=== PATIENT | female | born 1985 | race Caucasian/White ===

== ENCOUNTER 2021-03-18 17:50 | Emergency (ER) | payer OTHER, SELFPAY ==
[2021-03-18 18:29] VITALS: BP 141/87; PULSE 82; RESP 16; TEMP 36.2; O2SAT 98; BMI 25.7
[2021-03-18] MEDS: Diphth,Pertus(ACell),Tet Adult 0.5 ML SYRINGE IM (19:16)
[2021-03-18] MEDS: Lidocaine HCl 1 % MPF 5 ML VIAL 10 ML SUBCUT (19:18)
--- NOTE | 2021-03-18 20:32 | ED_ITS ---
HPI - Wound/Laceration General Chief Complaint: Wound/Laceration <Mir Mcdonald NP - Last Filed: 05/04/21 17:49> Stated Complaint: FINGER LAC <Mir Mcdonald NP - Last Filed: 05/04/21 17:49> Time Seen by Provider: 03/18/21 19:03 <Mir Mcdonald NP - Last Filed: 05/04/21 17:49> Source: patient <Mri Mcdonald NP - Last Filed: 05/04/21 17:49> Mode of arrival: ambulatory <Mir Mcdonald NP - Last Filed: 05/04/21 17:49> Limitations: no limitations <Mir Mcdonald NP - Last Filed: 05/04/21 17:49> History of Present Illness HPI narrative: Superficial laceration to the left ring finger at home from a new cooking knife. Knife was clean. States up-to-date on vaccination. <Mir Mcdonald NP - Last Filed: 05/04/21 17:49> Onset (ago): minute(s) <Mir Mcdonald NP - Last Filed: 05/04/21 17:49> Extremity Location: left: hand <Mir Mcdonald NP - Last Filed: 05/04/21 17:49> Place: home <Mir Mcdonald NP - Last Filed: 05/04/21 17:49> Patient tetanus UTD: Yes <Mir Mcdonald NP - Last Filed: 05/04/21 17:49> Context: accidental <Mir Mcdonald NP - Last Filed: 05/04/21 17:49> Associated symptoms: none <Mir Mcdonald NP - Last Filed: 05/04/21 17:49> Treatments prior to arrival: bandage <Mir Mcdonald NP - Last Filed: 05/04/21 17:49> Related Data Allergies/Adverse Reactions: Allergies Allergy/AdvReac Type Severity Reaction Status Date / Time No Known Allergies Allergy Verified 03/18/21 18:32 <Mir Mcdonald NP - Last Filed: 05/04/21 17:49> Review of Systems Review of Systems: Constitutional: No Weight loss, No Fever, No Chills, No Night Sweats, No Fatigue, No Malaise ENT/Mouth: No Hearing loss, No Ear Pain, No Nasal Congestion, No Sinus Pain, No Hoarseness, No sore throat, No Rhinorrhea, No Swallowing Difficulty Eyes: No Eye Pain, No Swelling, No Redness, No Foreign Body, No Discharge, No Vision Changes Cardiovascular: No Chest Pain, No SOB, No Dyspnea on Exertion, No Orthopnea, No Edema, No Palpitations Respiratory: No Cough, No Sputum, No Wheezing, No Smoke Exposure, No Dyspnea Musculoskeletal: No joint pain, No Myalgias, No Joint Swelling Skin: No Skin Lesions, No rash, lacerations noted per HPI Neuro: No Weakness, No Numbness, No Paresthesias, No Loss of Consciousness, No Dizziness, No Headache Psych: No Social Issues Heme/Lymph: No Bruising, No Bleeding,No Lymphadenopathy Endocrine: No Polyuria, No Polydipsia, No Temperature Intolerance <Mir Mcdonald NP - Last Filed: 05/04/21 17:49> Yes all other systems are reviewed and are negative <Mir Mcdonald NP - Last Filed: 05/04/21 17:49> [facility] Social History Social History: Social History Alcohol intake: never Smoked in Last 30 Days: No Use of substances other than those prescribed or required for medical reasons: No Any prior treatment program specific to substance use: No Advance Directives: No Advance Directives Information Provided: Yes Patient : No <Mir Mcdonald NP - Last Filed: 05/04/21 17:49> Physical Exam Vital Signs: Vital Signs: Last Vital Signs Temp 97.2 F 03/18/21 18:29 Pulse 82 03/18/21 18:29 Resp 03/18/21 18:29 BP 141/87 H 03/18/21 18:29 Pulse Ox 98 03/18/21 18:29 Body Mass Index 25.7 Reviewed <Mir Mcdonald NP - Last Filed: 05/04/21 17:49> Vital Signs: Last Vital Signs Temp 97.2 F 03/18/21 18:29 Pulse 82 03/18/21 18:29 Resp 16 03/18/21 18:29 BP 141/87 H 03/18/21 18:29 Pulse Ox 98 03/18/21 18:29 Body Mass Index 25.7 <Ashutosh Llanes MD - Last Filed: 06/06/21 09:39> Const: General: cooperative and healthy appearing; No acute distress or intoxicated appearing <Mir Mcdonald NP - Last Filed: 05/04/21 17:49> Nutritional Appearance: average body habitus <Mir Mcdonald NP - Last Filed: 05/04/21 17:49> Orientation/consciousness: patient oriented x3 <Mir Mcdonald NP - Last Filed: 05/04/21 17:49> Chest: Chest palpation & inspection: normal inspection of the chest <Mir Mcdonald NP - Last Filed: 05/04/21 17:49> Resp: Effort & Inspection: normal respiratory effort <Mir Mcdonald NP - Last Filed: 05/04/21 17:49> Skin: General skin exam: no rashes or lesions noted <Mir Mcdonald NP - Last Filed: 05/04/21 17:49> Neuro: General: patient oriented x3 <Mir Mcdonald NP - Last Filed: 05/04/21 17:49> Extrem: General: Yes normal to inspection <Mir Mcdonald NP - Last Filed: 05/04/21 17:49> Course Course Course Narrative: Superficial laceration repaired with suture. Home care, return, follow-up instructions provided. <Mir Mcdonald NP - Last Filed: 05/04/21 17:49> I have reviewed the chart <Ashutosh Llanes MD - Last Filed: 06/06/21 09:39> Procedures Laceration Laceration 1: Site: hand <Mir Mcdonald NP - Last Filed: 05/04/21 17:49> Side (If applicable): left <Mir Mcdonald NP - Last Filed: 05/04/21 17:49> Size (cm): 0.5 <Mir Mcdonald NP - Last Filed: 05/04/21 17:49> Description: linear <Mir Mcdonald NP - Last Filed: 05/04/21 17:49> Depth: simple, single layer <Mir Mcdonald NP - Last Filed: 05/04/21 17:49> Local Anesthetic: lidocaine 1% <Mir Mcdonald NP - Last Filed: 05/04/21 17:49> Amount of anesthesia used (mL): 2 <Mir Mcdonald NP - Last Filed: 05/04/21 17:49> Size (cm): 5-0 <Mir Mcdonald NP - Last Filed: 05/04/21 17:49> Number of sutures: 2 <Mir Mcdonald NP - Last Filed: 05/04/21 17:49> Technique: simple, interrupted <Mir Mcdonald NP - Last Filed: 05/04/21 17:49> Discharge Plan Discharge Clinical Impression: Laceration <Mir Mcdonald NP - Last Filed: 05/04/21 17:49> Patient Disposition: Home, Self-Care <Mir Mcdonald NP - Last Filed: 05/04/21 17:49> Instructions: Finger Laceration (ED) <Mir Mcdonald NP - Last Filed: 05/04/21 17:49> Additional Instructions: Today you suffered a superficial laceration to the left distal ring finger. This required for superficial stitches. There is no injury to the bone or ligaments. The stitches are nonabsorbable and need to be removed and 7-10 days Keep site clean and dry finger splint for comfort Return here for suture removal Return here sooner if you have any concerns or symptoms of infection including redness, swelling, discharge, pain, fever. You may take [id number] Tylenol or ibuprofen as needed for pain discomfort Thank you <Mir Mcdonald NP - Last Filed: 05/04/21 17:49> Referrals: Radha Castaneda MD [Primary Care Provider] - 1 week (Suture removal) <Mir Mcdonald NP - Last Filed: 05/04/21 17:49> Interventions: ED Discharge Assessment Last Done: 03/18/21 20:39 <Mir Mcdonald NP - Last Filed: 05/04/21 17:49> Discharge Date/Time: 03/18/21 20:40 <Mir Mcdonald NP - Last Filed: 05/04/21 17:49>
== END 2021-03-18 20:40 | disposition home or self-care (01) ==
PROVIDERS: Emergency Provider Internal Medicine; PCP Internal Medicine
DX: S61.215A Laceration without foreign body of left ring finger without damage to nail, initial encounter (principal); W26.0XXA Contact with knife, initial encounter; Y93.G1 Activity, food preparation and clean up; Y92.010 Kitchen of single-family (private) house as the place of occurrence of the external cause; Y99.9 Unspecified external cause status
CPT/HCPCS: 12001; 29130; 90471; 90715; 99284

== ENCOUNTER 2023-08-02 10:32 | Outpatient (AMB) | payer OTHER, SELFPAY ==
--- NOTE | 2023-08-02 11:21 | AM.OFFWIN_ITS ---
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 Patient Tobacco Use Status: Never used Tobacco Allergies No Known Allergies Allergy (Verified 08/02/23 11:53) Medication List - Last Reconciled 08/02/23 by Rashi Romo MD citalopram 20 mg PO DAILY Do you need a note to return to daycare/school/sports/work: No HPI GENERAL CLEANER/right knee injury HPI Details 38-year-old female presents to the [facility] for a sick visit. Patient tripped on the sidewalk and fell. She landed on her knees pretty hard. Patient is having swelling in the right knee. PFSH Social History Alcohol intake: never Patient Tobacco Use Status: Never used Tobacco Physical Exam Vital Signs: Last Vital Signs Pulse 82 08/02/23 11:23 BP 136/80 08/02/23 11:23 Pulse Ox 98 08/02/23 11:23 Oxygen Delivery Method Room Air 08/02/23 11:23 Extrem Other: Right knee: Swollen. Joint line tenderness on the medial margin. Open wound over the patella. Pain on extension of the knee. Discomfort on flexion. Assessment & Plan Assessment & Plan (1) Sprain of right knee: Code(s): S83.91XA - Sprain of unspecified site of right knee, initial encounter Qualifiers: Encounter type: initial encounter Involved ligament of knee: unspecified ligament Qualified Code(s): S83.91XA - Sprain of unspecified site of right knee, initial encounter Plan: X-ray images were personally reviewed by me. Knee brace supplied. Patient was advised to use anti-inflammatories. If symptoms do not improve to follow-up here. Coding Level of Care Code Est Pt Level 4 (62853) Diagnoses Sprain of right knee, unspecified ligament, initial encounter S83.91XA Encounter type: initial encounter Involved ligament of knee: unspecified ligament
[2023-08-02 11:23] VITALS: BP 136/80; PULSE 82; O2SAT 98
== END 2023-08-02 12:16 | disposition home or self-care (01) ==
PROVIDERS: PCP Internal Medicine; Visit Provider Internal Medicine
DX: S83.91XA Sprain of unspecified site of right knee, initial encounter (principal)
CPT/HCPCS: 99214

== ENCOUNTER 2023-08-02 11:54 | Outpatient (REF) | payer OTHER, SELFPAY ==
--- NOTE | ~2023-08-02 | XR_ITS ---
EXAMINATION: XR KNEE, RIGHT CLINICAL INFORMATION: Right knee sprain COMPARISON: None available. TECHNIQUE: Four views of the right knee. FINDINGS: Mild medial knee joint narrowing. No fracture or dislocation. Small suprapatellar effusion. Benign-appearing sclerotic density proximal right tibia. XR/XR knee RT 4V IMPRESSION: Small suprapatellar effusion. No acute bony pathology.
== END 2023-08-02 11:55 | disposition home or self-care (01) ==
LOC: HO.HMGCX 11:54
PROVIDERS: PCP Internal Medicine; Visit Provider Internal Medicine
DX: S83.91XA Sprain of unspecified site of right knee, initial encounter (principal); X58.XXXA Exposure to other specified factors, initial encounter; Y93.9 Activity, unspecified; Y92.9 Unspecified place or not applicable; Y99.9 Unspecified external cause status
CPT/HCPCS: 73564

== ENCOUNTER 2023-09-02 13:06 | Outpatient (AMB) | payer OTHER, SELFPAY ==
--- NOTE | 2023-09-02 13:21 | AM.OFFWIN_ITS ---
Intake Vital Signs 09/02/23 13:24 Height 5 ft 4 in Weight 176 lb BMI 30.2 BP 120/86 Blood Pressure Location Lt brachial Position Sitting Pulse 82 Pulse Source Pulse Oximeter Temp 97.6 F Temp Source Temporal Artery Scan Pulse Oximetry (%) 98 Intake Visit Reasons: following up on knee injury Intake Note: pt is here for c/o knee pain, was evaluated in walk last month and states its still painful with sharp pain Patient Tobacco Use Status: Never used Tobacco Allergies No Known Allergies Allergy (Verified 09/02/23 13:22) Do you need a note to return to daycare/school/sports/work: Yes HPI following up on knee injury HPI Details 38-year-old female presents to the [facility] for a sick visit. Patient was seen a month ago after she had a fall on the right knee. X-ray images done that day showed minimal effusion. Patient reports that her symptoms have not fully improved. Continues to have pain in the right knee. He has also noticed that her leg is locking in when she tries to extend the leg completely. Able to climb stairs and come down stairs. 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 PFSH Social History Alcohol intake: never Patient Tobacco Use Status: Never used Tobacco Physical Exam Vital Signs: Last Vital Signs Temp 97.6 F 09/02/23 13:24 Pulse 82 09/02/23 13:24 BP 120/86 09/02/23 13:24 Pulse Ox 98 09/02/23 13:24 BMI result Body Mass Index 30.2 Extrem Other: Right knee: No joint line tenderness. Unable to fully extend the leg. Full flexion. Assessment & Plan Assessment & Plan (1) Sprain of right knee: Code(s): S83.91XA - Sprain of unspecified site of right knee, initial encounter Qualifiers: Encounter type: initial encounter Involved ligament of knee: unspecified ligament Qualified Code(s): S83.91XA - Sprain of unspecified site of right knee, initial encounter Plan: Meloxicam added to the regimen. Patient was advised to follow-up with her primary care provider as she may need an MRI of the knee to check for ligament damage. Coding Level of Care Code Est Pt Level 3 (94621) Diagnoses Sprain of right knee, unspecified ligament, initial encounter S83.91XA Encounter type: initial encounter Involved ligament of knee: unspecified ligament
[2023-09-02 13:24] VITALS: BP 120/86; PULSE 82; TEMP 36.4; O2SAT 98; BMI 30.2
== END 2023-09-02 14:05 | disposition home or self-care (01) ==
PROVIDERS: PCP Internal Medicine; Visit Provider Internal Medicine
DX: S83.91XA Sprain of unspecified site of right knee, initial encounter (principal)
CPT/HCPCS: 99213

== ENCOUNTER 2023-09-27 14:42 | Outpatient (AMB) | payer OTHER, SELFPAY ==
--- NOTE | 2023-09-27 15:23 | MHC.OFFVIS ---
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 The patient states that she injured her knee approximately 6 months ago. She twisted her knee when she fell off of a curb. Since that time her symptoms have gotten worse in spite of continued non operative treatments. She has done physical therapy which aggravated her symptoms. She has also tried Tylenol and anti-inflammatory medicines which gave her minimal relief. In spite of wearing a knee brace she states that her right knee will give out several times per day. Allergies No Known Allergies Allergy (Verified 09/27/23 15:30) Medication List - Last Reconciled 09/28/23 by Satnam Maharaj MD citalopram 20 mg PO DAILY [facility] Social History (Updated 09/27/23 @ 15:25 by Katie Dumont [facility]) Alcohol intake: never Patient Tobacco Use Status: Never used Tobacco Current occupational status: employed Current occupation: self employed Physical Exam Vital Signs: BMI result Body Mass Index 30.2 Const Other: Well-nourished well-developed very friendly female awake alert and oriented x3 in no acute distress Extrem Other: Bilateral lower extremity examination shows good capillary refill, no skin lesions noted, normal sensation light touch Right knee examination shows a minimal effusion, minimal crepitus with range of motion, tenderness along her medial joint line, positive Naya's test Results Reviewed Results Reviewed: Full weight-bearing x-rays of the patient's right knee show minimal joint space narrowing, no acute bony abnormalities Assessment & Plan Assessment & Plan (1) Right knee pain: Code(s): M25.561 - Pain in right knee Plan Ms. Enamorado presents with progressively worsening right knee pain and mechanical symptoms most likely due to a tear of her medial meniscus. Thus, I will send the patient for an MRI of her right knee for further evaluation. I will contact her by phone once the MRI results are available. Feel free to call me at any time should questions regarding her orthopedic management arise. I spent 22 minutes in reviewing the patient's records and imaging studies, seeing the patient and documenting in the medical record. Orders: Orders MR knee RT wo con Today M25.561 - Pain in right knee Coding Level of Care Code New Pt Level 2 (98439) Diagnoses Right knee pain M25.561
[2023-09-27 15:31] VITALS: BMI 30.2
== END 2023-09-27 15:57 | disposition home or self-care (01) ==
PROVIDERS: PCP Internal Medicine; Visit Provider Orthopaedic Surgery
DX: M25.561 Pain in right knee (principal)
CPT/HCPCS: 99202

== ENCOUNTER → 2023-09-27 14:42 | Outpatient (BNVA) | payer OTHER, SELFPAY | PROVIDERS: PCP Internal Medicine; Visit Provider Orthopaedic Surgery | DX: M25.561 Pain in right knee (principal) | CPT/HCPCS: 99202 ==

== ENCOUNTER 2023-11-16 18:29 | Outpatient (REF) | payer OTHER, SELFPAY | END 2023-11-16 18:30 | disposition home or self-care (01) | LOC: HO.MRI 18:29 | PROVIDERS: PCP Internal Medicine; Visit Provider Orthopaedic Surgery | DX: M25.561 Pain in right knee (principal) | CPT/HCPCS: 73721 ==